=== PATIENT | male | born 1985 | race Caucasian/White ===

== ENCOUNTER 2020-04-05 10:29 | Outpatient (REF) | payer OTHER, SELFPAY | END 2020-04-05 10:30 | disposition home or self-care (01) | LOC: HO.LAB 10:29 | PROVIDERS: Visit Provider Internal Medicine | DX: Z20.828 Contact with and (suspected) exposure to other viral communicable diseases (principal) | CPT/HCPCS: C9803; U0003 ==

== ENCOUNTER 2021-03-29 17:30 | Emergency (ER) | payer OTHER, SELFPAY ==
--- NOTE | ~2021-03-29 | XR_ITS ---
EXAMINATION: XR HAND, LEFT CLINICAL INFORMATION: Open wound fifth digit COMPARISON: 11/06/2014 TECHNIQUE: PA, lateral, and oblique views of the left hand. FINDINGS: The bones and soft tissues are normal. No fracture. Alignment is anatomic. Joint spaces are maintained. No erosions or soft tissue calcifications. No radiopaque foreign bodies. XR/XR hand LT 2V IMPRESSION: Normal left hand.
[2021-03-29 17:35] VITALS: BP 149/95; PULSE 102; RESP 18; TEMP 36.6; O2SAT 98; BMI 29.8
--- NOTE | 2021-03-29 18:38 | ED_ITS ---
HPI - Extremity Problem General Chief complaint: Extremity Injury, Upper <GEORGIA Fraser - Last Filed: 03/29/21 18:55> Stated complaint: L Hand Lac Work Injury <GEORGIA Fraser - Last Filed: 03/29/21 18:55> Time Seen by Provider: 03/29/21 18:38 <GEORGIA Fraser - Last Filed: 03/29/21 18:55> Source: patient <GEORGIA Fraser - Last Filed: 03/29/21 18:55> Mode of arrival: ambulatory <GEORGIA Fraser - Last Filed: 03/29/21 18:55> Limitations: no limitations <GEORGIA Fraser - Last Filed: 03/29/21 18:55> History of Present Illness HPI Narrative: 35-year-old male no known medical history presents to the emergency department with left hand pain and left pinky pain status post getting his finger caught in a closing gait. He has a small laceration to his pinky finger. Bleeding is well controlled. He has also noted some swelling and pain with range of movement of fingers, particularly his left pinky. He has no other complaints at this time. He denies fevers, chills, nausea, vomiting, chest pain, shortness of breath. This was a work related injury. <GEORGIA Fraser - Last Filed: 03/29/21 18:55> MD Complaint: extremity pain (left fifth pinky ) <GEORGIA Fraser - Last Filed: 03/29/21 18:55> Onset (ago): hour(s) (1) <GEORGIA Fraser - Last Filed: 03/29/21 18:55> Pain Consistency: constant <GEORGIA Frasre Last Filed: 03/29/21 18:55> Location: left <GEORGIA Fraser Last Filed: 03/29/21 18:55> Quality: burning and constant <GEORGIA Fraser Last Filed: 03/29/21 18:55> Radiation: none <GEORGIA Fraser - Last Filed: 03/29/21 18:55> Relieving factors: nothing <GEORGIA Fraser - Last Filed: 03/29/21 18:55> Exacerbating factors: nothing <GEORGIA Fraser - Last Filed: 03/29/21 18:55> Associated symptoms: denies other symptoms <GEORGIA Fraser - Last Filed: 03/29/21 18:55> Related Data Allergies/Adverse reactions: Allergies Allergy/AdvReac Type Severity Reaction Status Date / Time No Known Allergies Allergy Verified 03/29/21 18:01 [No Known Allergies*] <GEORGIA Fraser - Last Filed: 03/29/21 18:55> Review of Systems Review of Systems: Constitutional : No Fever, No Chills, Cardiovascular : No Chest Pain, No SOB Respiratory : No Dyspnea Gastrointestinal : No abdominal pain Musculoskeletal : No Joint Swelling Skin : No rash, positive skin laceration Neuro : No Weakness, No Numbness Psych : No SI/HI <GEORGIA Fraser - Last Filed: 03/29/21 18:55> [facility] Past Medical History Attestation statement: The following information was validated with the patient. <GEORGIA Fraser - Last Filed: 03/29/21 18:55> Source: old records reviewed and nursing notes reviewed <GEORGIA Fraser - Last Filed: 03/29/21 18:55> Social History Social History: Social History Advance Directives: No Advance Directives Information Provided: No <GEORGIA Fraser - Last Filed: 03/29/21 18:55> Physical Exam Vital Signs: Vital Signs: Last Vital Signs Temp 98 F 03/29/21 17:35 Pulse 102 H 03/29/21 17:35 Resp 18 03/29/21 17:35 BP 149/95 H 03/29/21 17:35 Pulse Ox 98 03/29/21 17:35 Body Mass Index 29.8 <GEORGIA Fraser - Last Filed: 03/29/21 18:55> Vital Signs: Last Vital Signs Temp 98 F 03/29/21 17:35 Pulse 102 H 03/29/21 17:35 Resp 18 03/29/21 17:35 BP 149/95 H 03/29/21 17:35 Pulse Ox 98 03/29/21 17:35 Body Mass Index 29.8 <GEORGIA Brownlee - Last Filed: 03/29/21 19:28> Appearance: Alert.? Oriented X3.? No acute distress.? Head: Normocephalic, atraumatic, no step-offs or deformities Eyes: Pupils equal, round and reactive to light.? ENT: Pharynx normal.? Neck: Normal inspection.? Neck supple.? CVS: Normal heart rate and rhythm.? Pulses normal.? Respiratory: No respiratory distress.? Breath sounds normal.? Abdomen: Soft and nontender.? Skin: Skin warm and dry.? Normal skin color.? Normal skin turgor.?+ small skin abrasion to the dorsal aspect of fifth distal digit. Extremities: No lower extremity edema.? No calf ttp. 5/5 strength to bilateral upper and lower extremities. Normal range of motion to bilateral hands, wrists, fingers. Back: No midline tenderness, no C-spine tenderness, full range of motion, no CVA tenderness bilaterally Neuro: Oriented X 3.? No motor deficit.? No sensory deficit. <GEORGIA Fraser - Last Filed: 03/29/21 18:55> Course Course Course Narrative: Agree with assessment and plan. <GEORGIA Brownlee - Last Filed: 03/29/21 19:28> Reevaluation(s) Reevaluation #1: At this time patient states [facility], he will come back another day to get a tetanus shot if needed. He will not be getting tetanus shot today. Patient is safe for discharge home <GEORGIA Fraser - Last Filed: 03/29/21 18:55> Time: 18:55 <GEORGIA Fraser - Last Filed: 03/29/21 18:55> MDM - Extremity (Nontraumatic) MDM Narrative Medical decision making narrative: 1819 35-year-old male no known medical history presents to the emergency department with left hand and left 5th digit pain pain status post getting his left hand crushed in a closing gait at work. Patient reports swelling, pain with range of motion of all fingers on left hand, but particularly the left 5th digit. Patient is unsure of his tetanus status. Upon physical examination patient appears comfortable, in no acute distress. S1-S2 appreciated free of murmurs. Lungs are clear to auscultation bilaterally. Abdomen soft nontender nondistended. There is a small skin abrasion to the dorsal aspect of fifth distal digit. All fingers to the left and right hand exhibit full range of motion. Left digits with slight pain. No focal neuro deficits. 2+ pulses equal bilateral. Plan at this time is to clean the area using saline, and iodine. Zeroform will be applied to the area, and a dry dressing will be placed. Patient has been advised to return to the emergency department with any new or worsening symptoms such as fevers, chills, worsening pain, pain with range of motion, trouble making a fist. Patient is safe for discharge <GEORGIA Fraser Last Filed: 03/29/21 18:55> Imaging Data Left hand x-ray: Attestation: I personally reviewed and interpreted this imaging study as follows: <GEORGIA Fraser Last Filed: 03/29/21 18:55> Radiologist's impression: FINDINGS: The bones and soft tissues are normal. No fracture. Alignment is anatomic. Joint spaces are maintained. No erosions or soft tissue calcifications. No radiopaque foreign bodies. XR/XR hand LT 2V IMPRESSION: Normal left hand. <GEORGIA Fraser Last Filed: 03/29/21 18:55> Critical Care Time Critical Care Time Critical Care Time: No <GEORGIA Fraser Last Filed: 03/29/21 18:55> Discharge Plan Discharge Clinical Impression: Laceration of finger of left hand, Crush accident, Work related injury <GEORGIA Fraser Last Filed: 03/29/21 18:55> Patient Disposition: Home, Self-Care <GEORGIA Fraser Last Filed: 03/29/21 18:55> Instructions: Laceration (ED), Laceration Without Closure (ED) <GEORGIA Fraser Filed: 03/29/21 18:55> Additional Instructions: Follow-up with your primary care provider this week. Return to the emergency department with new or worsening symptoms. Such as increasing pain, swelling, fevers, chills or pain with range of motion. Since this was a work related injury you can follow-up with the work connection phone number is [phone] Your hand x-ray showed a normal left hand, no fractures noted or dislocations. In case of emergency call 911 <GEORGIA Fraser - Last Filed: 03/29/21 18:55> Referrals: Physician,Unknown J [Primary Care Provider] - 2 days <GEORGIA Fraser - Last Filed: 03/29/21 18:55> Stand Alone Forms: Work/School Release <GEORGIA Fraser - Last Filed: 03/29/21 18:55> Interventions: ED Discharge Assessment Last Done: 03/29/21 19:02 <GEORGIA Fraser - Last Filed: 03/29/21 18:55> Discharge Date/Time: 03/29/21 19:04 <GEORGIA Fraser - Last Filed: 03/29/21 18:55>
== END 2021-03-29 19:04 | disposition home or self-care (01) ==
PROVIDERS: Emergency Provider Emergency Medicine
DX: S61.412A Laceration without foreign body of left hand, initial encounter (principal); X58.XXXA Exposure to other specified factors, initial encounter; Y93.9 Activity, unspecified; Y92.9 Unspecified place or not applicable; Y99.0 Civilian activity done for income or pay
CPT/HCPCS: 73120; 99283

== ENCOUNTER 2022-08-25 10:29 | Outpatient (REF) | payer OTHER, SELFPAY | END 2022-08-25 10:30 | disposition home or self-care (01) | LOC: HO.LNP 10:29 | PROVIDERS: PCP Internal Medicine; Referring Provider Internal Medicine; Visit Provider Surgery | DX: L72.3 Sebaceous cyst (principal) | CPT/HCPCS: 11403; 88304; 99202 ==

== ENCOUNTER → 2022-09-08 11:18 | Outpatient (BNVA) | payer OTHER, SELFPAY | PROVIDERS: PCP Internal Medicine; Referring Provider Internal Medicine; Visit Provider Surgery | DX: Z48.817 Encounter for surgical aftercare following surgery on the skin and subcutaneous tissue (principal); Z87.2 Personal history of diseases of the skin and subcutaneous tissue | CPT/HCPCS: 99212 ==